=== PATIENT | male | born 1990 | race Hispanic/Latino ===

== ENCOUNTER 2019-08-06 02:42 | Emergency (ER) | payer OTHER ==
[2019-08-06] MEDS ORDERED: DiphenhydrAMINE HCL 50 MG/ML VIAL ONE (02:52)
[2019-08-06] MEDS ORDERED: DEXAMETHASONE SOD PHOSPHATE 10MG/ML 1ML VIAL ONE (02:52)
[2019-08-06] MEDS ORDERED: FAMOTIDINE/PF 20 MG/2 ML VIAL IV ONE (02:52)
[2019-08-06] MEDS ORDERED: ALBUTEROL SULFATE 0.083% 2.5 MG/3 ML INH IH ONE (03:14)
== END 2019-08-06 04:30 | disposition home or self-care (01) ==
LOC: EDH 02:42
DX: J06.9 Acute upper respiratory infection, unspecified (principal); Z90.49 Acquired absence of other specified parts of digestive tract; Z98.890 Other specified postprocedural states; Z72.0 Tobacco use
CPT/HCPCS: 71045; 94640; 96374; 96375; 99284; J1100; J1200; J3490

== ENCOUNTER 2019-11-10 15:08 | Emergency (ER) | payer SELFPAY ==
[2019-11-10] MEDS ORDERED: IPRATROPIUM/ALBUTEROL SULFATE 3 ML SOLUTION IH ONE (15:50)
[2019-11-10 16:35] LABS: RAPID GROUP A STREP NEGATIVE (NEGATIVE)
== END 2019-11-10 17:02 | disposition home or self-care (01) ==
LOC: EDH 15:08
DX: H65.02 Acute serous otitis media, left ear (principal); J20.9 Acute bronchitis, unspecified; J66.8 Airway disease due to other specific organic dusts; Z90.49 Acquired absence of other specified parts of digestive tract; Z98.890 Other specified postprocedural states; Z72.0 Tobacco use
CPT/HCPCS: 71046; 87804; 87880; 94640; 96372

== ENCOUNTER 2020-07-22 21:51 | Emergency (ER) | payer OTHER ==
[2020-07-22 22:21] LABS: BASOPHILS % (AUTO) 0.9 % (0.0-5.0); EOSINOPHILS % (AUTO) 2.3 % (0.0-8.0); HEMATOCRIT 38.3 % (42-54); LYMPHOCYTES % (AUTO) 29.3 % (21.0-51.0); MEAN CORPUSCULAR HEMOGLOBIN 27.9 pg (27.0-33.0); MEAN CORPUSCULAR HGB CONC 33.4 g/dL (32.0-36.0); MEAN CORPUSCULAR VOLUME 83.6 fL (79-99); MONOCYTES % (AUTO) 8.9 % (3.0-13.0); NEUTROPHILS % (AUTO) 58.3 % (40.0-77.0); PLATELET COUNT (AUTO) 249 K/uL (130-400); RED BLOOD CELL COUNT(AUTO) 4.58 MIL/uL (4.50-6.20); RED CELL DISTRIBUTION WIDTH 12.9 % (11.0-15.5); WHITE BLOOD COUNT (AUTO) 6.5 K/uL (4.8-10.8)
[2020-07-22 22:28] LABS: CREATININE 0.8 mg/dL (0.5-1.5); POTASSIUM 3.7 mmol/L (3.5-5.1)
[2020-07-22 22:42] LABS: THYROID STIMULATING HORMONE 0.98 uIU/mL (0.36-3.74)
[2020-07-22] MEDS ORDERED: FAMOTIDINE 20MG TAB 20 MG TAB ONE (22:46)
[2020-07-22] MEDS ORDERED: ACETAMINOPHEN EXTRA STRENGTH 500 MG TABLET ONE (22:50)
== END 2020-07-22 23:55 | disposition home or self-care (01) ==
LOC: EDH 21:51
DX: M25.50 Pain in unspecified joint (principal); D64.9 Anemia, unspecified; R20.2 Paresthesia of skin; Z90.49 Acquired absence of other specified parts of digestive tract; Z72.0 Tobacco use
CPT/HCPCS: 36415; 80048; 84443; 85025

== ENCOUNTER 2021-02-14 23:11 | Emergency (ER) | payer OTHER | END 2021-02-15 00:57 | disposition home or self-care (01) | LOC: EDH 23:11 | DX: B34.9 Viral infection, unspecified (principal); Z20.822 Contact with and (suspected) exposure to COVID-19; Z72.0 Tobacco use; Z98.890 Other specified postprocedural states | CPT/HCPCS: 87426; 87804 ==